=== PATIENT | male | born 1985 | race Caucasian/White ===

== ENCOUNTER 2017-03-02 10:23 | Emergency (ER) | payer SELFPAY ==
[~2017-03-02] VITALS: Ht 180.3 cm; Wt 79.5 kg
[2017-03-02 10:28] VITALS: BP 143/83; PULSE 81; TEMP 98
[2017-03-02] MEDS ORDERED: SEROQUEL XR150 MG PO (10:31)
[2017-03-02 11:15] LABS: COLLECTION METHOD CLEAN CATCH
[2017-03-02 11:22] LABS: PH 8 (5-8); SQUAMOUS EPITHELIAL None Seen /hpf; URINE APPEARANCE Clear; URINE BACTERIA None Seen /hpf; URINE BILIRUBIN Negative (NEGATIVE); URINE BLOOD Negative (NEGATIVE); URINE COLOR Colorless; URINE GLUCOSE Negative (NEGATIVE); URINE KETONE Negative (NEGATIVE); URINE LEUKOCYTE ESTERASE Negative (NEGATIVE); URINE PROTEIN(semi-quant) Negative (NEGATIVE); URINE RBC None Seen /hpf; URINE UROBILINOGEN Negative (NEGATIVE); URINE WBC 0-2 /hpf
[2017-03-02 12:51] LABS: CHLAMYDIA/TRACH by PCR Male DETECTED; Neisseria Gon by PCR Male NOT DETECTED
== END 2017-03-02 11:55 | disposition home or self-care (01) ==
LOC: COL.ER 10:23
PROVIDERS: Physician Assistant
DX: Z20.2 Contact with and (suspected) exposure to infections with a predominantly sexual mode of transmission (principal); F20.9 Schizophrenia, unspecified; F12.10 Cannabis abuse, uncomplicated; Z85.47 Personal history of malignant neoplasm of testis
CPT/HCPCS: J0696